=== PATIENT | male | born 1985 | race Caucasian/White ===

== ENCOUNTER 2017-10-26 13:09 | Emergency (ER) | payer MEDICAID, OTHER ==
[2017-10-26 13:29] VITALS: BP 131/79
--- NOTE | 2017-10-26 13:39 | UC ---
Skin Complaint HPI - HPI Summary HPI Summary: Abscess right buttock-no drainage, fever, painful - History of Current Complaint Chief Complaint: UCSkin Time Seen by Provider: 10/26/17 13:28 Stated Complaint: SKIN COMPLAINT Hx Obtained From: Patient Onset/Duration: Sudden Onset Timing: Constant Pain Intensity: 7 Pain Scale Used: 0-10 Numeric Location: Discrete Character: Pain, Redness, Raised Aggravating Factor(s): Nothing, Touch Alleviating Factor(s): Treatment PROTOTYPE SEWER: - heat Associated Signs & Symptoms: Positive: Tenderness - Allergy/Home Medications Allergies/Adverse Reactions: Allergies Allergy/AdvReac Type Severity Reaction Status Date / Time No Known Allergies Allergy Verified 10/26/17 13:20 Home Medications: Home Medications Buprenorphine/Naloxone SL TAB* [Suboxone 8-2 mg SL TAB*] 1 tab SL BID 10/26/17 [ History Confirmed 10/26/17] Nicotine PATCH 21 MG/24 HR* 21 mg TRANSDERM DAILY 10/26/17 [History Confirmed ] Review of Systems Constitutional: Negative Skin: Other - abscess right buttock Eyes: Negative ENT: Negative Respiratory: Negative Cardiovascular: Negative Gastrointestinal: Negative Genitourinary: Negative Motor: Negative Neurovascular: Negative Musculoskeletal: Negative Neurological: Negative Psychological: Negative Is Patient Immunocompromised?: No All Other Systems Reviewed And Are Negative: Yes PMH/Surg Hx/FS Hx/Imm Hx Previously Healthy: Yes - Surgical History Surgical History: None - Social History Occupation: Employed Full-time Lives: With Family Alcohol Use: None Substance Use Type: None Substance Use Comment - Amount & Last Used: opiate addiction in remission Smoking Status (MU): Heavy Every Day Tobacco Smoker Type: Cigarettes Amount Used/How Often: 1-2 ppd Length of Time of Smoking/Using Tobacco: 1 PPD x 12 Years Have You Smoked in the Last Year: Yes When Did the Patient Quit Smoking/Using Tobacco: ~10/05/17 Cessation Counseling: Patient Advised to Stop - Immunization History Most Recent Influenza Vaccination: never Most Recent Tetanus Shot: 12/01/12 Most Recent Pneumonia Vaccination: never Physical Exam Triage Information Reviewed: Yes Appearance: Well-Appearing, No Pain Distress, Well-Nourished Vital Signs: Initial Vital Signs Temp 98.1 F 10/26/17 13:19 Pulse 90 10/26/17 13:19 Resp 16 10/26/17 13:19 BP 131/79 10/26/17 13:19 Pulse Ox 99 10/26/17 13:19 Vital Signs Reviewed: Yes Eye Exam: Normal Eyes: Positive: Conjunctiva Clear ENT Exam: Normal ENT: Positive: Normal ENT inspection, Hearing grossly normal. Negative: Trismus , Muffled voice, Hoarse voice Dental Exam: Normal Neck exam: Normal Neck: Positive: Supple, Nontender Respiratory Exam: Normal Respiratory: Positive: Chest non-tender, No respiratory distress, No accessory muscle use Cardiovascular Exam: Normal Cardiovascular: Positive: RRR, Pulses Normal, Brisk Capillary Refill Musculoskeletal Exam: Normal Musculoskeletal: Positive: Strength Intact, ROM Intact, No Edema Neurological Exam: Normal Neurological: Positive: Alert, Muscle Tone Normal Psychological Exam: Normal Skin: Positive: Other - 10 cm red raised tender abscess with out center softening no drainage, Course/Dx - Course Course Of Treatment: off work heat on buttock 6 times a day ibuprofen for pain, bactrim follow with pcp or return for I&D if does not open and drain - Diagnoses Provider Diagnoses: abscess right buttock Discharge - Sign-Out/Discharge Documenting (check all that apply): Patient Departure - Discharge Plan Condition: Stable Disposition: HOME Prescriptions: Sulfamethox/Trimethoprim DS* [Bactrim DS 800/160 TAB*] 1 tab PO BID #20 tab Patient Education Materials: Abscess (ED), Heat Pack Application (ED) Forms: *Work Release Referrals: EVA Martin [Medical Doctor] - If Needed - Billing Disposition and Condition Condition: STABLE Disposition: Home
== END 2017-10-26 13:48 | disposition home or self-care (01) ==
LOC: UCCORT 13:09
DX: L02.31 Cutaneous abscess of buttock (principal); Z79.891 Long term (current) use of opiate analgesic
CPT/HCPCS: 99212; G0463

== ENCOUNTER 2017-10-28 12:14 | Emergency (ER) | payer OTHER ==
[2017-10-28 12:43] VITALS: BP 136/82
[2017-10-28] MEDS ORDERED: Lidocaine 2% W/EPI 1:100,000* 20 ML MDV INJ ONE (13:04)
--- NOTE | 2017-10-28 15:06 | UC ---
Skin Complaint HPI - HPI Summary HPI Summary: Pt c/o of worsening abscess to right buttock. Pt was seen here two days ago for c/o abscess and has been following directions with warm pack and antibiotics. Pt states wound has not opened drained and is more painful . - History of Current Complaint Chief Complaint: UCSkin Time Seen by Provider: 10/28/17 12:51 Stated Complaint: RE-CK ABSCESS Hx Obtained From: Patient Onset/Duration: Gradual Onset, Worse Since - onset Skin Exposure Onset/Duration: Days Ago Timing: Constant Onset Severity: Mild Current Severity: Moderate Pain Intensity: 6 Pain Scale Used: 0-10 Numeric Location: Discrete - right buttock Character: Pain, Redness, Raised, Painful Aggravating Factor(s): Touch Alleviating Factor(s): Other - warm compress Associated Signs & Symptoms: Positive: Tenderness - Allergy/Home Medications Allergies/Adverse Reactions: Allergies Allergy/AdvReac Type Severity Reaction Status Date / Time No Known Allergies Allergy Verified 10/28/17 12:38 Review of Systems Constitutional: Negative Skin: Other - abscess, right buttock Eyes: Negative ENT: Negative Respiratory: Negative Cardiovascular: Negative Gastrointestinal: Negative Genitourinary: Negative Motor: Negative Neurovascular: Negative Musculoskeletal: Negative Neurological: Negative Psychological: Negative Is Patient Immunocompromised?: No All Other Systems Reviewed And Are Negative: Yes PMH/Surg Hx/FS Hx/Imm Hx Previously Healthy: Yes - Surgical History Surgical History: None - Social History Occupation: Employed Full-time Lives: With Family Alcohol Use: None Substance Use Type: None Substance Use Comment - Amount & Last Used: opiate addiction in remission Smoking Status (MU): Heavy Every Day Tobacco Smoker Type: Cigarettes Amount Used/How Often: 3-8 cigarettes daily Length of Time of Smoking/Using Tobacco: 1 PPD x 12 Years Have You Smoked in the Last Year: Yes When Did the Patient Quit Smoking/Using Tobacco: ~10/05/17 - Immunization History Most Recent Influenza Vaccination: never Most Recent Tetanus Shot: 12/01/12 Most Recent Pneumonia Vaccination: never Physical Exam Triage Information Reviewed: Yes Appearance: Pain Distress Vital Signs: Initial Vital Signs Temp 97.8 F 10/28/17 12:38 Pulse 90 10/28/17 12:38 Resp 14 10/28/17 12:38 BP 136/82 10/28/17 12:38 Pulse Ox 98 10/28/17 12:38 Vital Signs Reviewed: Yes Eye Exam: Normal ENT Exam: Normal Neck exam: Normal Respiratory Exam: Normal Cardiovascular Exam: Normal Musculoskeletal Exam: Normal Neurological Exam: Normal Psychological Exam: Normal Skin Exam: Other - right buttock, ~ 4 cm X 4 cm erythematous, serous drainage, with purulent cneter, open wound, Course/Dx - Differential Diagnoses - Skin Complaint Differential Diagnoses: Cellulitis, MRSA - Diagnoses Provider Diagnoses: abscess right buttock. incision and drainage of abscess Procedures - Incision and Drainage Right Buttocks Dorsal Site: right upper buttock Anesthesia: Local - 2% with epi Instrument(s): Scalpel, Other - normal saline irrigation ~ 500 cc Discharge - Sign-Out/Discharge Documenting (check all that apply): Patient Departure - Discharge Plan Condition: Stable Disposition: HOME Prescriptions: Cephalexin CAP* [Keflex 500 CAP*] 500 mg PO Q12H #14 cap Patient Education Materials: Abscess (ED), Abscess Incision and Drainage (DC) Forms: *Work Release Referrals: [facility] [place] [facility]FERR[facility] [Outside] No Primary Care Phys,NOPCP [Primary Care Provider] - - Billing Disposition and Condition Condition: STABLE Disposition: Home
== END 2017-10-28 13:50 | disposition home or self-care (01) ==
LOC: UCCORT 12:14
DX: L02.31 Cutaneous abscess of buttock (principal); F17.210 Nicotine dependence, cigarettes, uncomplicated
CPT/HCPCS: 10060; 87070; 87077; 87186; 87205; 87640; 87641; 99212; G0463

== ENCOUNTER 2018-09-21 14:10 | Emergency (ER) | payer SELFPAY ==
[2018-09-21 14:41] VITALS: BP 148/78
--- NOTE | 2018-09-21 14:56 | ED ---
Lower Extremity - HPI Summary HPI Summary: 32 yr old male with bilateral lower leg swelling/foot swelling. Onset over the past four days. He denies SOB, chest pain. He denies a history of liver or kidney disease or heart disease. The patient denies fever, and chills. The patient has been walking a lot lately. He works construction. He denies a history of trauma falls or injuries. He has had some blisters form on the bottom of his left foot at the time his swelling developed. - History of Current Complaint Chief Complaint: UCGeneralIllness Stated Complaint: BILATERAL FEET SKIN Time Seen by Provider: 09/21/18 14:43 Pain Intensity: 7 - Allergies/Home Medications Allergies/Adverse Reactions: Allergies Allergy/AdvReac Type Severity Reaction Status Date / Time No Known Allergies Allergy Verified 10/28/17 12:38 Home Medications: Home Medications NK [No Home Medications Reported] 09/21/18 [History Confirmed 09/21/18] PMH/Surg Hx/FS Hx/Imm Hx Endocrine/Hematology History: Denies: Hx Diabetes, Hx Thyroid Disease Cardiovascular History: Denies: Hx Hypertension Respiratory History: Denies: Hx Asthma Musculoskeletal History: Reports: Hx Back Problems Sensory History: Reports: Hx Contacts or Glasses Opthamlomology History: Reports: Hx Contacts or Glasses Neurological History: Reports: Hx Migraine Psychiatric History: Reports: Hx of Violent Episodes Against Others, Hx Substance Abuse Denies: Hx Eating Disorder Infectious Disease History: Yes Infectious Disease History: Reports: Hx Hepatitis - Hepatitis C Denies: Traveled Outside the [place] in Last 30 Days - Family History Known Family History: Positive: None - Social History Lives: With Family Alcohol Use: None Substance Use Type: Reports: None Substance Use Comment - Amount & Last Used: opiate addiction in remission Smoking Status (MU): Light Every Day Tobacco Smoker Type: Cigarettes Amount Used/How Often: 3-8 cigarettes daily Length of Time of Smoking/Using Tobacco: 1 PPD x 12 Years Have You Smoked in the Last Year: Yes Review of Systems Constitutional: Negative Negative: Chest Pain Negative: Shortness Of Breath Positive: Edema All Other Systems Reviewed And Are Negative: Yes Physical Exam Triage Information Reviewed: Yes Vital Signs On Initial Exam: Initial Vitals Temp Pulse Resp BP Pulse Ox 97.9 F 109 16 148/78 96 09/21/18 14:36 09/21/18 14:36 09/21/18 14:36 09/21/18 14:36 09/21/18 14:36 Vital Signs Reviewed: Yes Appearance: Positive: Well-Appearing, No Pain Distress Skin: Positive: Warm, Skin Color Reflects Adequate Perfusion Head/Face: Positive: Normal Head/Face Inspection Eyes: Positive: EOMI, BEVERLY Neck: Positive: Nontender Respiratory/Lung Sounds: Positive: Clear to Auscultation, Breath Sounds Present Cardiovascular: Positive: RRR. Negative: Murmur Abdomen Description: Positive: Nontender. Negative: Distended Musculoskeletal: Positive: Edema Left, Edema Right, Other - both the left and right lower extremities are with swelling calf and downward, left greater than the right. He has no deformity. No obvious cellulitis. Skin on tops of both feet are tender to palpate. Neurological: Positive: Sensory/Motor Intact, Alert, Oriented to Person Place, Time, CN Intact II-III Psychiatric: Positive: Normal Diagnostics - Vital Signs Vital Signs Temp Pulse Resp BP Pulse Ox 09/21/18 14:36 97.9 F 109 16 148/78 96 - Laboratory Lab Statement: Any lab studies that have been ordered have been reviewed, and results considered in the medical decision making process. Lower Extremity Course/Dx - Course Course Of Treatment: 32 yr old with bilateral lower extremity edema. he will go to the ER in [place], his mother is here and will drive him. he will go for labs, possible US and further work up as to why at such a young age he has bilateral lower extremity edema. - Diagnoses Provider Diagnoses: Bilateral lower extremity edema, Hypertension Discharge - Sign-Out/Discharge Documenting (check all that apply): Patient Departure All imaging exams completed and their final reports reviewed: No Studies - Discharge Plan Condition: Good Disposition: HOME-RECOMMEND TO ED Patient Education Materials: Leg Edema (ED), Hypertension (ED) Referrals: No Primary Care Phys,NOPCP [Primary Care Provider] - Additional Instructions: You need to go to the ER for further work up and evaluation of your leg swelling. - Billing Disposition and Condition Condition: GOOD Disposition: Home-Recommend to ED
== END 2018-09-21 15:05 | disposition home health service (06) ==
LOC: UCCORT 14:10
DX: R60.9 Edema, unspecified (principal); I10 Essential (primary) hypertension; B19.20 Unspecified viral hepatitis C without hepatic coma; F17.210 Nicotine dependence, cigarettes, uncomplicated
CPT/HCPCS: 99212; G0463